=== PATIENT | female | born 1960 | race Caucasian/White ===

== ENCOUNTER 2021-05-24 08:46 | Day surgery (SDC) | payer OTHER ==
[~2021-05-24] VITALS: Ht 152.4 cm; Wt 90.3 kg
[2021-05-24] MEDS ORDERED: fentaNYL citrate 0.05 MG/ML VIAL ONE (10:10)
[2021-05-24] MEDS ORDERED: LIDOCAINE 2% 100 MG/5 ML UJET TP ONE (10:10)
[2021-05-24] MEDS ORDERED: diphenhydrAMINE 50 MG/ML VIAL ONE (10:10)
[2021-05-24] MEDS ORDERED: MIDAZOLAM 5 MG/5 ML VIAL ONE (10:10)
[2021-05-24] MEDS ORDERED: fentaNYL citrate 0.05 MG/ML VIAL IVP ONE (12:05)
[2021-05-24] MEDS ORDERED: MIDAZOLAM 2 MG/2 ML VIAL IVP ONE (12:05)
== END 2021-05-24 11:41 | disposition home or self-care (01) ==
LOC: MDS 08:46 → MFCC 08:47 → MDS 11:41
PROVIDERS: ATTEND Internal Medicine Gastroenterology
DX: Z12.11 Encounter for screening for malignant neoplasm of colon (principal); K57.30 Diverticulosis of large intestine without perforation or abscess without bleeding; K62.5 Hemorrhage of anus and rectum; I10 Essential (primary) hypertension; G47.33 Obstructive sleep apnea (adult) (pediatric); Z79.899 Other long term (current) drug therapy
CPT/HCPCS: 45378; J2250; J3010; J1200